=== PATIENT | male | born 1975 | race Caucasian/White ===

== ENCOUNTER 2017-07-17 17:20 | Inpatient (IN) | payer OTHER ==
[~2017-07-17] VITALS: Ht 177.8 cm; Wt 114.5 kg
[2017-07-17 20:39] VITALS: Ht 177.8 cm; Wt 114.5 kg
[2017-07-17 20:45] VITALS: BP 109/72; RESP 18
[2017-07-17] MEDS ORDERED: ONDANSETRON 4 MG INJ IV PRN (21:30)
[2017-07-17] MEDS ORDERED: morphine 4 MG/ML VIAL IV PRN (21:30)
[2017-07-17] MEDS: DEXTROSE 5%-0.45% NACL 1,000 ML IV SCH (22:50)
[2017-07-18 01:24] LABS: BASOPHIL # 0.1 10^3/ul (0.0-0.1); BASOPHILS % 0.6 % (0.0-2.0); EOSINOPHILS # 0.2 10^3/ul (0.0-0.5); EOSINOPHILS % 2.1 % (0.0-7.0); HEMATOCRIT 45.5 % (42.0-52.0); HEMOGLOBIN 15.4 g/dl (14.0-18.0); LYMPHOCYTES # 1.7 10^3/ul (0.8-2.9); LYMPHOCYTES % 20.6 % (15.0-51.0); MEAN CORPUSCULAR HEMOGLOBIN 29.8 pg (29.0-33.0); MEAN CORPUSCULAR HGB CONC 33.8 g/dl (32.0-37.0); MEAN PLATELET VOLUME 10.4 fl (7.4-10.4); MONOCYTE # 0.6 10^3/ul (0.3-0.9); MONOCYTES % 6.9 % (0.0-11.0); NEUTROPHILS % 69.3 % (39.0-77.0); NUCLEATED RED BLOOD CELLS% 0.2 /100WBC (0.0-0.0); PLATELET COUNT 253 10^3/UL (140-415); RED BLOOD COUNT 5.17 10^6/ul (4.70-6.10); WHITE BLOOD COUNT 8.2 10^3/ul (4.8-10.8)
[2017-07-18 01:34] LABS: ALBUMIN/GLOBULIN RATIO 1.14; BILIRUBIN,DIRECT 2.2 mg/dl (0.00-0.20); BILIRUBIN,TOTAL 3.2 mg/dl (0.2-1.3); CALCIUM 8.7 mg/dl (8.4-10.2); CREATININE 0.76 mg/dl (0.61-1.24); MAGNESIUM 2.5 mg/dl (1.7-2.5); PHOSPHORUS 3.3 mg/dl (2.5-4.9); POTASSIUM 3.9 mmol/L (3.5-5.1); TOTAL PROTEIN 7.5 g/dl (6.1-8.1)
[2017-07-18 01:35] VITALS: BP 106/64; RESP 18
[2017-07-18] MEDS: DEXTROSE 5%-0.45% NACL 1,000 ML IV SCH ×3 (06:48→17:31)
[2017-07-18] MEDS ORDERED: KETOROLAC 30 MG INJ IV PRN (07:00)
[2017-07-18 08:14] VITALS: BP 111/74; RESP 20
--- NOTE | 2017-07-18 09:02 | HP ---
Date/Time of Note Date/Time of Note DATE: 07/18/17 TIME: 08:50 Assessment/Plan VTE Prophylaxis VTE Prophylaxis Intervention: SCD's Lines/Catheters IV Catheter Type (from Nrsg): Peripheral IV Urinary Cath still in place: No Assessment/Plan Assessment/Plan 1. Abd pain, 2/2 Choledocholithiasis - per report from [facility], pt has a CBD stone - plan is to obtain MRCP as well as GI consult - Surgery consult as needed - cont pain mgmt 2. Abnormal LFTs and Hyperbilirubinemia - see # 1 3. Obesity with BMI of 36 - weight reduction advised HPI/ROS Admit Date/Time Admit Date/Time Jul 17, 2017 at 19:25 Hx of Present Illness This is a 41 yo male with with no significant PMH who initially presented to [facility] c/o abd pain. this particular pain started 3 days ago and mainly located in RUQ area. he reported multiple NBNB emesis and dark colored urine. Reportedly abd u/s showed CBD stone. He was transferred to [facility] because of insurance reasons. He also said that 5 months ago he had similar pain for which he went to same hospital and was told he had "blocked stone". No invasive procedures were done. Denied fever or chills. Except imaging on CD and some random papers, no meaningful documentation was sent with pt, and as such I' m unsure about exact u/s result. . PMH/Family/Social Social History Smoking Status: Never smoker Exam/Review of Systems Vital Signs Vitals Vital Signs Date Time Temp Pulse Resp B/P Pulse Ox O2 Delivery O2 Flow Rate FiO2 07/18/17 08:14 97.1 71 20 111/74 95 Intake and Output 07/17/17 07/17/17 07/18/17 15:00 23:00 07:00 Intake Total 750 ml Balance 750 ml Exam Constitutional: alert, oriented, well developed Head: atraumatic, normocephalic Eyes: EOMI, PERRL Respiratory: clear to auscultation, normal air movement Cardiovascular: nl pulses, regular rate and rhythm Gastrointestinal: other (very minimal tenderness in RUQ area), soft Extremities: normal pulses Labs Result Diagram: 07/18/179907/18/1799 Medications Medications Current Medications Ondansetron HCl (Zofran Inj) 4 mg Q6H PRN IV NAUSEA AND/OR VOMITING Last administered on 07/17/17 22:49; Admin Dose 4 MG; Start 07/17/17 at 21:30 Morphine Sulfate 4 mg 4 mg Q4H PRN IV PAIN Last administered on 07/17/17 22:49 ; Admin Dose 4 MG; Start 07/17/17 at 21:30 Dextrose/Sodium Chloride (D5-1/2ns) 1,000 ml @ 125 mls/hr Q8H IV Last administered on 07/18/17 06:48; Admin Dose 125 MLS/HR; Start 07/17/17 at 21:30 Ketorolac Tromethamine (Toradol) 30 mg Q6H PRN IV PAIN; Start 07/18/17 at 07:00 ; Stop 07/21/17 at 06:59 KARLENE MCDONNELL MD Jul 18, 2017 09:01
--- NOTE | 2017-07-18 12:44 | CONS ---
Date/Time of Note Date/Time of Note DATE: 07/18/17 TIME: 12:41 Assessment/Plan Assessment/Plan Chief Complaint/Hosp Course Impression: 1. Abd pain, RUQ 2. Abnormal LFTs and Hyperbilirubinemia 3. Obesity with BMI of 36 4. gallstones 5. possible choledocholithiasis Recommendations: 1. MRCP to confirm that there is CBD stone 2. Surgery consult for possible cholecystectomy 3. low fat diet when diet is resumed 4. wt loss 5. pain control 2. Abnormal LFTs and Hyperbilirubinemia - see # 1 3. Obesity with BMI of 36 - weight reduction advised Problems: Consultation Date/Type/Reason Admit Date/Time Jul 17, 2017 at 19:25 Date of Consultation: Jul 18, 2017 Type of Consultation: GI Reason for Consultation possible CBD stone Hx of Present Illness 41 yo male who is transferred from [facility] for management of choledocholithiasis. He initially presented to [facility] c /o generalized abd pain that started 3 days ago and mainly located in RUQ area. Associated with multiple NBNB emesis and dark colored urine. Reportedly abd u/s showed CBD stone but I cannot see the u/s or u/s report. He was transferred to [facility] because of insurance reasons. He also said that 5 months ago he had similar pain for which he went to same hospital and was told he had "blocked stone". No invasive procedures were done. Denied fever or chills. All point ros administered, pertinent positives and negatives in HPI otherwise negative. Past Medical History Medical History: gallstones Past Surgical History Past Surgical Hx: no surgical history Family History Significant Family History: no pertinent family hx Social History Alcohol Use: occasionally Smoking Status: Never smoker Drug Use: none Exam/Review of Systems Vital Signs Vitals Vital Signs Date Time Temp Pulse Resp B/P Pulse Ox O2 Delivery O2 Flow Rate FiO2 07/18/17 08:14 97.1 71 20 111/74 95 Intake and Output 07/17/17 07/17/17 07/18/17 15:00 23:00 07:00 Intake Total 750 ml Balance 750 ml Exam Constitutional: alert, obese, oriented, well developed Psych: nl mood/affect, no complaints Head: atraumatic, normocephalic Eyes: EOMI, nl conjunctiva, nl lids, nl sclera ENMT: mucosa pink and moist, nl external ears & nose, nl lips & teeth, nl nasal mucosa & septum Neck: non-tender, supple Respiratory: clear to auscultation, normal air movement Cardiovascular: nl pulses, regular rate and rhythm Gastrointestinal: bowel sounds, non-tender, soft Neurological: nl mental status, nl speech, nl strength Results Result Diagram: 07/18/17 0100 07/18/17 0100 Results 24 hrs Laboratory Tests Test 07/18/17 01:00 White Blood Count 8.2 Red Blood Count 5.17 Hemoglobin 15.4 Hematocrit 45.5 Mean Corpuscular Volume 88.0 Mean Corpuscular Hemoglobin 29.8 Mean Corpuscular Hemoglobin Concent 33.8 Red Cell Distribution Width 14.0 Platelet Count 253 Mean Platelet Volume 10.4 Neutrophils % 69.3 Lymphocytes % 20.6 Monocytes % 6.9 Eosinophils % 2.1 Basophils % 0.6 Nucleated Red Blood Cells % 0.2 H Neutrophils # (Manual) 5.7 Lymphocytes # 1.7 Monocytes # 0.6 Eosinophils # 0.2 Basophils # 0.1 Nucleated Red Blood Cells # 0.0 Sodium Level 140 Potassium Level 3.9 Chloride Level 104 Carbon Dioxide Level 25 Anion Gap 15 Blood Urea Nitrogen 12 Creatinine 0.76 Glucose Level 106 Calcium Level 8.7 Phosphorus Level 3.3 Magnesium Level 2.5 Total Bilirubin 3.2 H Direct Bilirubin 2.20 H Indirect Bilirubin 1.0 Aspartate Amino Transf (AST/SGOT) 178 H Alanine Aminotransferase (ALT/SGPT) 454 H Alkaline Phosphatase 279 H Total Protein 7.5 Albumin 4.0 Globulin 3.50 H Albumin/Globulin Ratio 1.14 Lipase 141 Medications Medications Current Medications Ondansetron HCl (Zofran Inj) 4 mg Q6H PRN IV NAUSEA AND/OR VOMITING Last administered on 07/17/17 22:49; Admin Dose 4 MG; Start 07/17/17 at 21:30 Morphine Sulfate 4 mg 4 mg Q4H PRN IV PAIN Last administered on 07/17/17 22:49 ; Admin Dose 4 MG; Start 07/17/17 at 21:30 Dextrose/Sodium Chloride (D5-1/2ns) 1,000 ml @ 125 mls/hr Q8H IV Last administered on 07/18/17 06:48; Admin Dose 125 MLS/HR; Start 07/17/17 at 21:30 Ketorolac Tromethamine (Toradol) 30 mg Q6H PRN IV PAIN; Start 07/18/17 at 07:00 ; Stop 07/21/17 at 06:59 Acetaminophen (Tylenol Tab) 650 mg Q6H PRN PO PAIN AND OR ELEVATED TEMP; Start 07/18/17 at 13:00 CORBY LLAMAS MD Jul 18, 2017 12:43
[2017-07-18] MEDS ORDERED: ACETAMINOPHEN 325 MG TAB PO PRN (13:00)
[2017-07-18 15:30] VITALS: BP 119/72; RESP 18
--- NOTE | 2017-07-18 17:23 | RADRPT ---
PROCEDURE: US Abdomen. CLINICAL INDICATION: Right upper quadrant pain, evaluate for gallstones TECHNIQUE: Multiple real-time images were acquired of the patient's abdomen and retroperitoneum ut ilizing a high resolution transducer. COMPARISON: None FINDINGS: The liver is normal in size and contour without evidence of intrapelvic biliary dilatation. Multiple gallstones are seen within the gallbladder. There is a small amount of pericholecystic flu id. The gallbladder wall is mildly thickened measuring 4.1 mm. The technologist did not report the sonographic Negron sign. The common bile duct is mildly dilated measuring 7.6 mm. The right kidney is unremarkable without evidence of hydronephrosis or mass. Right kidney measures 11.8 cm in length. IMPRESSION: 1. Multiple gallstones are seen within the gallbladder with a small amount of pericholecystic fluid or gallbladder wall thickening. The gallbladder wall measures 4.1 mm. Findings are concerning for acute cholecystitis. 2. The common bile duct is mildly dilated measuring 7.6 mm. RPTAT:AAJJ Physician Billy Date Time Electronically viewed and signed by Physician Billy on 07/18/2017 17:22 /
[2017-07-18 19:00] VITALS: BP 107/67; RESP 18
--- NOTE | 2017-07-18 19:44 | CONS ---
Date/Time of Note Date/Time of Note DATE: 07/18/17 TIME: 19:40 Assessment/Plan Assessment/Plan Chief Complaint/Hosp Course Obese 41-year-old male with acute cholecystitis and possible choledocholithiasis * Continue pain control, IV fluid hydration, broad-spectrum venous antibiotics * Monitor LFTs * MRCP has been ordered. Will follow up * If MRCP positive for choledocholithiasis then will need ERCP The above was discussed with the patient in full detail. Further recommendations will be made based on clinical course. Problems: Consultation Date/Type/Reason Admit Date/Time Jul 17, 2017 at 19:25 Date of Consultation: Jul 18, 2017 Type of Consultation: GENERAL SURGERY Reason for Consultation Abdominal pain Hx of Present Illness Patient is an obese 41 yo male who is transferred from [facility] where he presented with complaints of epigastric and right upper quadrant Stearns pain that started 3 days ago. He reports multiple episodes of nausea and vomiting as well as dark urine. Apparently an ultrasound done there showed presence of choledocholithiasis. He was transferred to [facility] because of insurance reasons. He also said that 5 months ago he had similar pain for which he went to same hospital and was told he had "blocked stone". No invasive procedures were done. Denied fever or chills. Currently states his pain is improved, but is still there. He is hungry. On arrival here he was found to have elevated LFTs. A 14 point review of systems was conducted and was negative except for that which was mentioned in HPI Psychological: nl mood/affect, no complaints Past Medical History Medical History: gallstones Past Surgical History Past Surgical Hx: no surgical history Social History Alcohol Use: occasionally Smoking Status: Never smoker Drug Use: none Exam/Review of Systems Vital Signs Vitals Vital Signs Date Time Temp Pulse Resp B/P Pulse Ox O2 Delivery O2 Flow Rate FiO2 07/18/17 15:30 98.1 72 18 119/72 97 Intake and Output 07/17/17 07/17/17 07/18/17 15:00 23:00 07:00 Intake Total 750 ml Balance 750 ml Exam GENERAL: Awake, alert, oriented x 3. No acute distress. SKIN: No jaundice. HEENT: PERRLA, EOMI, No Scleral Icterus NECK: Supple without JVD CARDIOVASCULAR: S1S2, regular rate and rhythm. No murmurs appreciated. RESPIRATORY: Clear to auscultation bilaterally. ABDOMEN: Soft, bowel sounds present, nondistended, there is mild epigastric and right upper quadrant tenderness to palpation. There is no rebound, guarding or evidence of peritonitis. EXTREMITIES: Free range of motion x 4. No cyanosis, edema, or clubbing. NEUROLOGIC: Cranial nerves II-XII are intact. Sensation is intact grossly. Results Result Diagram: 07/18/17 0100 07/18/17 0100 Results 24 hrs Laboratory Tests Test 07/18/17 01:00 White Blood Count 8.2 Red Blood Count 5.17 Hemoglobin 15.4 Hematocrit 45.5 Mean Corpuscular Volume 88.0 Mean Corpuscular Hemoglobin 29.8 Mean Corpuscular Hemoglobin Concent 33.8 Red Cell Distribution Width 14.0 Platelet Count 253 Mean Platelet Volume 10.4 Neutrophils % 69.3 Lymphocytes % 20.6 Monocytes % 6.9 Eosinophils % 2.1 Basophils % 0.6 Nucleated Red Blood Cells % 0.2 H Neutrophils # (Manual) 5.7 Lymphocytes # 1.7 Monocytes # 0.6 Eosinophils # 0.2 Basophils # 0.1 Nucleated Red Blood Cells # 0.0 Sodium Level 140 Potassium Level 3.9 Chloride Level 104 Carbon Dioxide Level 25 Anion Gap 15 Blood Urea Nitrogen 12 Creatinine 0.76 Glucose Level 106 Calcium Level 8.7 Phosphorus Level 3.3 Magnesium Level 2.5 Total Bilirubin 3.2 H Direct Bilirubin 2.20 H Indirect Bilirubin 1.0 Aspartate Amino Transf (AST/SGOT) 178 H Alanine Aminotransferase (ALT/SGPT) 454 H Alkaline Phosphatase 279 H Total Protein 7.5 Albumin 4.0 Globulin 3.50 H Albumin/Globulin Ratio 1.14 Lipase 141 Medications Medications Current Medications Ondansetron HCl (Zofran Inj) 4 mg Q6H PRN IV NAUSEA AND/OR VOMITING Last administered on 07/17/17 22:49; Admin Dose 4 MG; Start 07/17/17 at 21:30 Morphine Sulfate 4 mg 4 mg Q4H PRN IV PAIN Last administered on 07/17/17 22:49 ; Admin Dose 4 MG; Start 07/17/17 at 21:30 Dextrose/Sodium Chloride (D5-1/2ns) 1,000 ml @ 125 mls/hr Q8H IV Last administered on 07/18/17 17:31; Admin Dose 125 MLS/HR; Start 07/17/17 at 21:30 Ketorolac Tromethamine (Toradol) 30 mg Q6H PRN IV PAIN; Start 07/18/17 at 07:00 ; Stop 07/21/17 at 06:59 Acetaminophen (Tylenol Tab) 650 mg Q6H PRN PO PAIN AND OR ELEVATED TEMP; Start 07/18/17 at 13:00 Procedures Procedures PROCEDURE: US Abdomen. CLINICAL INDICATION: Right upper quadrant pain, evaluate for gallstones TECHNIQUE: Multiple real-time images were acquired of the patient's abdomen and retroperitoneum utilizing a high resolution transducer. COMPARISON: None FINDINGS: The liver is normal in size and contour without evidence of intrapelvic biliary dilatation. Multiple gallstones are seen within the gallbladder. There is a small amount of pericholecystic fluid. The gallbladder wall is mildly thickened measuring 4.1 mm. The technologist did not report the sonographic Negron sign. The common bile duct is mildly dilated measuring 7.6 mm. The right kidney is unremarkable without evidence of hydronephrosis or mass. Right kidney measures 11.8 cm in length. IMPRESSION: 1. Multiple gallstones are seen within the gallbladder with a small amount of pericholecystic fluid or gallbladder wall thickening. The gallbladder wall measures 4.1 mm. Findings are concerning for acute cholecystitis. 2. The common bile duct is mildly dilated measuring 7.6 mm. RPTAT:AAJJ Physician Billy Date Time Electronically viewed and signed by Physician Billy on 07/18/2017 17: 22 MC/ CC: KARLENE MCDONNELL MD, MICHAEL A. MD Jul 18, 2017 19:44
--- NOTE | 2017-07-18 19:46 | RADRPT ---
PROCEDURE: MRI MRCP. CLINICAL INDICATION: Right upper quadrant abdominal pain. Mild biliary ductal dilatation identifie d on ultrasound. Possible choledocholithiasis. TECHNIQUE: MRCP was performed without contrast. 3-D/multiplanar reformations and coronal rotating M IP images of the biliary tree were performed by the technologist and at an independent workstation. Evaluation is partially limited due to dielectric effect signal loss secondary to the patient's body habitus. COMPARISON: Ultrasound dated 07/18/2017. FINDINGS: There is no intra or extrahepatic biliary ductal dilatation or filling defect within the biliary tree. There is no pancreatic ductal dilatation or intraluminal filling defect. There are m ultiple gallstones including a 16 mm stone in the gallbladder neck. There is gallbladder wall thick ening and mild pericholecystic inflammatory change and fluid. The remaining portions of the abdomen are unremarkable. IMPRESSION: 1. Cholelithiasis with findings as described, suggestive of acute cholecystitis. 2. Otherwise, unremarkable MRCP with no evidence of choledocholithiasis, as questioned. RPTAT: HLBP .Lj Hawk MD, Date Time Electronically viewed and signed by .Lj Hawk MD, on 07/18/2017 19:46 .P/
[2017-07-19] MEDS: DEXTROSE 5%-0.45% NACL 1,000 ML IV SCH ×5 (01:45→21:30)
[2017-07-19 02:15] VITALS: BP 95/57; RESP 18
[2017-07-19 06:26] LABS: BASOPHILS % 0.5 % (0.0-2.0); EOSINOPHILS # 0.2 10^3/ul (0.0-0.5); EOSINOPHILS % 2.4 % (0.0-7.0); HEMATOCRIT 45.3 % (42.0-52.0); HEMOGLOBIN 14.7 g/dl (14.0-18.0); MEAN CORPUSCULAR HEMOGLOBIN 28.9 pg (29.0-33.0); MEAN CORPUSCULAR HGB CONC 32.5 g/dl (32.0-37.0); MEAN CORPUSCULAR VOLUME 89.2 fl (82.0-101.0); MEAN PLATELET VOLUME 10.6 fl (7.4-10.4); MONOCYTE # 0.5 10^3/ul (0.3-0.9); MONOCYTES % 6.5 % (0.0-11.0); NEUTROPHILS % 63.9 % (39.0-77.0); PLATELET COUNT 239 10^3/UL (140-415); RED BLOOD COUNT 5.08 10^6/ul (4.70-6.10); WHITE BLOOD COUNT 7.5 10^3/ul (4.8-10.8)
[2017-07-19 06:41] LABS: ALBUMIN 3.5 g/dl (3.3-4.9); ALBUMIN/GLOBULIN RATIO 1.09; BILIRUBIN,INDIRECT 0.6 mg/dl (0-1.1); BILIRUBIN,TOTAL 0.6 mg/dl (0.2-1.3); CALCIUM 8.4 mg/dl (8.4-10.2); CREATININE 0.71 mg/dl (0.61-1.24); POTASSIUM 3.7 mmol/L (3.5-5.1); TOTAL PROTEIN 6.7 g/dl (6.1-8.1)
[2017-07-19 07:00] VITALS: BP 106/67; RESP 18
--- NOTE | 2017-07-19 11:22 | CONS ---
Date/Time of Note Date/Time of Note DATE: 07/19/17 TIME: 11:17 Assessment/Plan Assessment/Plan Chief Complaint/Hosp Course Impression: 1. Abd pain, RUQ and epigastric 2. Abnormal LFTs and Hyperbilirubinemia 3. Obesity with BMI of 36 4. MRCP on 07/18/17 showedgallstones including at gallbladder neck. No choledocholithiasis. Recommendations: 1. Surgery consult for possible cholecystectomy 2. no indication for ERCP as MRCP did not show CBD stone 3. diet per surgery 4. wt loss 5. pain control 6. Dr. Maldonado to resume care of this patient tomorrow Problems: Consultation Date/Type/Reason Admit Date/Time Jul 17, 2017 at 19:25 Initial Consult Date 07/18/17 Type of Consultation: GI 24 HR Interval Summary Free Text/Dictation reduced abdominal pain, no n/v, hungry and wants to eat Exam/Review of Systems Vital Signs Vitals Vital Signs Date Time Temp Pulse Resp B/P Pulse Ox O2 Delivery O2 Flow Rate FiO2 07/19/17 07:00 98.2 69 18 106/67 94 Intake and Output 07/18/17 07/18/17 07/19/17 14:59 22:59 06:59 Intake Total 1000 ml 1900 ml Balance 1000 ml 1900 ml Exam Constitutional: alert, oriented, well developed Psych: nl mood/affect, no complaints Head: atraumatic, normocephalic Eyes: EOMI, nl conjunctiva, nl lids ENMT: nl external ears & nose, nl lips & teeth, nl nasal mucosa & septum Neck: non-tender, supple Respiratory: clear to auscultation, normal air movement Cardiovascular: nl pulses, regular rate and rhythm Gastrointestinal: bowel sounds, non-tender, soft Results Result Diagram: 07/19/17 0505 07/19/17 0505 Results 24 hrs Laboratory Tests Test 07/19/17 05:05 White Blood Count 7.5 Red Blood Count 5.08 Hemoglobin 14.7 Hematocrit 45.3 Mean Corpuscular Volume 89.2 Mean Corpuscular Hemoglobin 28.9 L Mean Corpuscular Hemoglobin Concent 32.5 Red Cell Distribution Width 14.0 Platelet Count 239 Mean Platelet Volume 10.6 H Neutrophils % 63.9 Lymphocytes % 26.0 Monocytes % 6.5 Eosinophils % 2.4 Basophils % 0.5 Nucleated Red Blood Cells % 0.0 Neutrophils # (Manual) 4.8 Lymphocytes # 2.0 Monocytes # 0.5 Eosinophils # 0.2 Basophils # 0.0 Nucleated Red Blood Cells # 0.0 Sodium Level 139 Potassium Level 3.7 Chloride Level 103 Carbon Dioxide Level 29 Anion Gap 11 Blood Urea Nitrogen 9 Creatinine 0.71 Glucose Level 97 Hemoglobin A1c 5.7 Calcium Level 8.4 Total Bilirubin 0.6 # Direct Bilirubin 0.00 # Indirect Bilirubin 0.6 Aspartate Amino Transf (AST/SGOT) 111 H Alanine Aminotransferase (ALT/SGPT) 353 H Alkaline Phosphatase 226 H Total Protein 6.7 Albumin 3.5 Globulin 3.20 Albumin/Globulin Ratio 1.09 Medications Medications Current Medications Ondansetron HCl (Zofran Inj) 4 mg Q6H PRN IV NAUSEA AND/OR VOMITING Last administered on 07/17/17 22:49; Admin Dose 4 MG; Start 07/17/17 at 21:30 Morphine Sulfate 4 mg 4 mg Q4H PRN IV PAIN Last administered on 07/17/17 22:49 ; Admin Dose 4 MG; Start 07/17/17 at 21:30 Dextrose/Sodium Chloride (D5-1/2ns) 1,000 ml @ 125 mls/hr Q8H IV Last administered on 07/19/17 09:14; Admin Dose 125 MLS/HR; Start 07/17/17 at 21:30 Ketorolac Tromethamine (Toradol) 30 mg Q6H PRN IV PAIN; Start 07/18/17 at 07:00 ; Stop 07/21/17 at 06:59 Acetaminophen 650 mg 650 mg Q6H PRN PO PAIN AND OR ELEVATED TEMP; Start at 13:00 Piperacillin Sod/ Tazobactam Sod (Zosyn 3.375gm/ 100 ml (Pmx)) 100 ml @ 25 mls/ hr TID@02,,18 IVPB ; Start 07/19/17 at 11:00 CORBY LLAMAS MD Jul 19, 2017 11:22
--- NOTE | 2017-07-19 11:47 | PN ---
Date/Time of Note Date/Time of Note DATE: 07/19/17 TIME: 11:44 Assessment/Plan Lines/Catheters IV Catheter Type (from Nrs): Peripheral IV Ruffin in Place (from Nrs): No Assessment/Plan Assessment/Plan Obese 41-year-old male with acute cholecystitis and resolved choledocholithiasis * MRCP negative for choledocholithiasis, but does show acute cholecystitis * Patient is without pain and wants to eat * Discussed options of surgery versus continued nonoperative management with him along with risks and benefits of both. Patient wants to continue with nonoperative management and consider outpatient cholecystectomy * Can advance diet. If tolerates and remains pain-free and can discharge home once medically cleared with outpatient follow-up Discussed with primary care team Subjective 24 Hr Interval Summary Feels much better. Denies abdominal pain. Is hungry and wants to eat. Tolerating clear liquids. Afebrile. Exam/Review of Systems Vital Signs Vitals Vital Signs Date Time Temp Pulse Resp B/P Pulse Ox O2 Delivery O2 Flow Rate FiO2 07/19/17 07:00 98.2 69 18 106/67 94 Intake and Output 07/18/17 07/18/17 07/19/17 15:00 23:00 07:00 Intake Total 1000 ml 1900 ml Balance 1000 ml 1900 ml Exam Free Text/Dictation GENERAL: Awake, alert, oriented x 3. No acute distress. SKIN: No jaundice. HEENT: PERRLA, EOMI, No Scleral Icterus CARDIOVASCULAR: S1S2, regular rate and rhythm. No murmurs appreciated. RESPIRATORY: Clear to auscultation bilaterally. ABDOMEN: Soft, bowel sounds present, nondistended, nontender to palpation. EXTREMITIES: Free range of motion x 4. No cyanosis, edema, or clubbing. Results Result Diagram: 07/19/17 0505 07/19/17 0505 YARELY VAZQUEZ MD Jul 19, 2017 11:47
[2017-07-19] MEDS: PIPER-TAZO 3.375 GM IV (PMX) 100 ML IVPB SCH ×2 (11:56→17:52)
[2017-07-19 14:00] VITALS: BP 115/74; RESP 20
--- NOTE | 2017-07-19 19:53 | PN ---
Date/Time of Note Date/Time of Note DATE: 07/19/17 TIME: 19:52 Assessment/Plan VTE Prophylaxis VTE Prophylaxis Intervention: LMWH Lines/Catheters IV Catheter Type (from Nrs): Peripheral IV Urinary Cath still in place: No Assessment/Plan Chief Complaint/Hosp Course 41 yo male with obesity presenting with acute cholecystitis Cholecystitis: - Abx for now - Diet as tolerated - No surgery now per Dr Galvan Continue abx and advanced diet as tolerated and likley home tomorrow Problems: Subjective 24 Hr Interval Summary Free Text/Dictation Feels very well, no more pain Tolerating diet MR shows cholecystitis, no biliary stones Asking if he can return home Exam/Review of Systems Vital Signs Vitals Vital Signs Date Time Temp Pulse Resp B/P Pulse Ox O2 Delivery O2 Flow Rate FiO2 07/19/17 14:00 98.6 78 20 115/74 96 Intake and Output 07/18/17 07/18/17 07/19/17 15:00 23:00 07:00 Intake Total 1000 ml 1900 ml Balance 1000 ml 1900 ml Exam Constitutional: alert, oriented, well developed Psych: nl mood/affect, no complaints Head: atraumatic, normocephalic Eyes: EOMI, PERRL, nl conjunctiva, nl lids, nl sclera ENMT: nl external ears & nose, nl lips & teeth, nl nasal mucosa & septum Neck: non-tender, supple Respiratory: clear to auscultation, normal air movement Cardiovascular: nl pulses, regular rate and rhythm Gastrointestinal: nl liver, spleen, non-tender, soft Musculoskeletal: nl extremities to inspection, nl gait and stance Extremities: normal pulses Neurological: VP & GENERAL COUNSEL II-XII intact, nl mental status, nl speech, nl strength Skin: nl turgor, No rash or lesions Lymph: nl lymph nodes Results Result Diagram: 07/19/17 0505 07/19/17 0505 Results 24 hrs Laboratory Tests Test 07/19/17 05:05 White Blood Count 7.5 Red Blood Count 5.08 Hemoglobin 14.7 Hematocrit 45.3 Mean Corpuscular Volume 89.2 Mean Corpuscular Hemoglobin 28.9 L Mean Corpuscular Hemoglobin Concent 32.5 Red Cell Distribution Width 14.0 Platelet Count 239 Mean Platelet Volume 10.6 H Neutrophils % 63.9 Lymphocytes % 26.0 Monocytes % 6.5 Eosinophils % 2.4 Basophils % 0.5 Nucleated Red Blood Cells % 0.0 Neutrophils # (Manual) 4.8 Lymphocytes # 2.0 Monocytes # 0.5 Eosinophils # 0.2 Basophils # 0.0 Nucleated Red Blood Cells # 0.0 Sodium Level 139 Potassium Level 3.7 Chloride Level 103 Carbon Dioxide Level 29 Anion Gap 11 Blood Urea Nitrogen 9 Creatinine 0.71 Glucose Level 97 Hemoglobin A1c 5.7 Calcium Level 8.4 Total Bilirubin 0.6 # Direct Bilirubin 0.00 # Indirect Bilirubin 0.6 Aspartate Amino Transf (AST/SGOT) 111 H Alanine Aminotransferase (ALT/SGPT) 353 H Alkaline Phosphatase 226 H Total Protein 6.7 Albumin 3.5 Globulin 3.20 Albumin/Globulin Ratio 1.09 Medications Medications Current Medications Ondansetron HCl (Zofran Inj) 4 mg Q6H PRN IV NAUSEA AND/OR VOMITING Last administered on 07/17/17 22:49; Admin Dose 4 MG; Start 07/17/17 at 21:30 Morphine Sulfate 4 mg 4 mg Q4H PRN IV PAIN Last administered on 07/17/17 22:49 ; Admin Dose 4 MG; Start 07/17/17 at 21:30 Dextrose/Sodium Chloride (D5-1/2ns) 1,000 ml @ 125 mls/hr Q8H IV Last administered on 07/19/17 17:52; Admin Dose 125 MLS/HR; Start 07/17/17 at 21:30 Ketorolac Tromethamine (Toradol) 30 mg Q6H PRN IV PAIN; Start 07/18/17 at 07:00 ; Stop 07/21/17 at 06:59 Acetaminophen 650 mg 650 mg Q6H PRN PO PAIN AND OR ELEVATED TEMP; Start at 13:00 Piperacillin Sod/ Tazobactam Sod (Zosyn 3.375gm/ 100 ml (Pmx)) 100 ml @ 25 mls/ hr TID@02,,18 IVPB Last administered on 07/19/17 17:52; Admin Dose 25 MLS/HR ; Start 07/19/17 at 11:00 AZALIA ACOSTA MD Jul 19, 2017 19:53
[2017-07-19 20:21] VITALS: BP 115/77; RESP 16
[2017-07-20] MEDS: PIPER-TAZO 3.375 GM IV (PMX) 100 ML IVPB SCH ×2 (01:06→10:12)
[2017-07-20 02:10] VITALS: BP 106/65; RESP 14
[2017-07-20] MEDS: DEXTROSE 5%-0.45% NACL 1,000 ML IV SCH (05:15)
[2017-07-20 08:11] VITALS: BP 112/75; RESP 18
--- NOTE | 2017-07-20 10:00 | PN ---
Date/Time of Note Date/Time of Note DATE: 07/20/17 TIME: 09:59 Assessment/Plan Lines/Catheters IV Catheter Type (from Nrs): Saline Lock Ruffin in Place (from Nrs): No Assessment/Plan Assessment/Plan Obese 41-year-old male with acute cholecystitis and resolved choledocholithiasis * MRCP negative for choledocholithiasis, but does show acute cholecystitis * Patient is without pain * Discussed options of surgery versus continued nonoperative management with him along with risks and benefits of both. Patient wants to continue with nonoperative management and consider outpatient cholecystectomy * Surgically stable for discharge home once medically cleared. Follow-up for outpatient cholecystectomy. Discussed with primary care team Subjective 24 Hr Interval Summary Doing well. Denies abdominal pain. Tolerating diet. Afebrile. Exam/Review of Systems Vital Signs Vitals Vital Signs Date Time Temp Pulse Resp B/P Pulse Ox O2 Delivery O2 Flow Rate FiO2 07/20/17 08:11 98.1 66 18 112/75 96 Intake and Output 07/19/17 07/19/17 07/20/17 15:00 23:00 07:00 Intake Total 600 ml 2200 ml 1475 ml Output Total 1200 ml Balance 600 ml 1000 ml 1475 ml Exam Free Text/Dictation GENERAL: Awake, alert, oriented x 3. No acute distress. SKIN: No jaundice. HEENT: PERRLA, EOMI, No Scleral Icterus CARDIOVASCULAR: S1S2, regular rate and rhythm. No murmurs appreciated. RESPIRATORY: Clear to auscultation bilaterally. ABDOMEN: Soft, bowel sounds present, nondistended, nontender to palpation. EXTREMITIES: Free range of motion x 4. No cyanosis, edema, or clubbing. Results Result Diagram: 07/19/17 0505 07/19/17 0505 YARELY VAZQUEZ MD Jul 20, 2017 10:00
[2017-07-20 10:35] VITALS: BP 130/61; RESP 18
[2017-07-20] MEDS ORDERED: AMOX1TAB9 PO (11:19)
--- NOTE | 2017-07-20 11:21 | PDOCDIS ---
Discharge Instructions CONDITION Patient Condition: Good HOME CARE INSTRUCTIONS: Diet Instructions: Low Fat /CholesterolSpecial Diet: NPO ACTIVITY: Activity Restrictions: No Restrictions FOLLOW UP/APPOINTMENTS Follow-up Plan Take antibiotics as prescribed Return to the hospital if you feel worsening of pain or it doesn't resolve Follow up in clinic with Dr Galvan to schedule surgery AZALIA ACOSTA MD Jul 20, 2017 11:21
--- NOTE | 2017-07-20 15:02 | DS ---
Date/Time of Note Date/Time of Note DATE: 07/20/17 TIME: 15:02 Discharge Summary Admission/Discharge Info Admit Date/Time Jul 17, 2017 at 19:25 Discharge Date/Time Jul 20, 2017 at 13:00 Patient Condition: Good Hx of Present Illness This is a 41 yo male with with no significant PMH who initially presented to [facility] c/o abd pain. this particular pain started 3 days ago and mainly located in RUQ area. he reported multiple NBNB emesis and dark colored urine. Reportedly abd u/s showed CBD stone. He was transferred to [facility] because of insurance reasons. He also said that 5 months ago he had similar pain for which he went to same hospital and was told he had "blocked stone". No invasive procedures were done. Denied fever or chills. Except imaging on CD and some random papers, no meaningful documentation was sent with pt, and as such I' m unsure about exact u/s result. . Hospital Course 41 yo male with obesity presenting with acute cholecystitis Patient was treated wiht antibiotics. His symptoms resolved. Evaluated by Dr Dumont who recommended conservative management. Patient was discharged wtih course of abx and will see surgeon in clinic Home Meds Active Scripts Amoxicillin/Potassium Clav (Amox-Clav 500-125 mg Tablet) 500-125 mg Tab, 1 TAB PO Q8 for 5 Days, #15 TAB Prov:AZALIA ACOSTA MD 07/20/17 Primary Care Provider Care Physician No Primary Time spent on discharge: > 30 minutes AZALIA ACOSTA MD Jul 20, 2017 15:02
== END 2017-07-20 13:00 | disposition home health service (06) | DRG 446 ==
LOC: MS1 19:25
PROVIDERS: ADMIT Internal Medicine; ATTEND Internal Medicine
DX: K80.62 Calculus of gallbladder and bile duct with acute cholecystitis without obstruction (principal); E80.6 Other disorders of bilirubin metabolism; E66.9 Obesity, unspecified; Z68.36 Body mass index [BMI] 36.0-36.9, adult; Z71.3 Dietary counseling and surveillance; R94.5 Abnormal results of liver function studies
CPT/HCPCS: 74181; 76705; 80053; 83036; 83690; 83735; 84100; 85025; J2270; J2405; J2543; J7042